=== PATIENT | female | born 1945 | race Hispanic/Latino ===

== ENCOUNTER 2016-10-26 10:25 | Outpatient (CLI) | payer MEDICARE ==
--- NOTE | 2016-10-26 11:50 | Cat Scan Report ---
CT scan of chest without IV contrast: History: Dyspnea. Findings: No endobronchial or mediastinal mass. No mediastinal, hilar or axillary adenopathy. No pleural or pericardial effusion. Calcification of the tracheobronchial tree. No intrinsic mass within the bronchi. No discrete nodularity in the lung parenchyma. No consolidation. Impression: Extensive calcification of tracheobronchial tree. No intrinsic mass. No lung mass.
== END 2016-10-26 10:26 | disposition home or self-care (01) ==
LOC: CT 10:25
PROVIDERS: ATTEND Specialist
DX: J45.909 Unspecified asthma, uncomplicated (principal); J98.4 Other disorders of lung; I10 Essential (primary) hypertension; E78.5 Hyperlipidemia, unspecified; E11.9 Type 2 diabetes mellitus without complications
CPT/HCPCS: 71250